=== PATIENT | female | born 2000 | race Caucasian/White ===

== ENCOUNTER 2021-07-05 10:13 | Emergency (ER) | payer OTHER ==
[2021-07-05] MEDS ORDERED: Sulfameth/Trimethoprim DS 800-160mg TAB ONE (11:15)
[2021-07-05] MEDS ORDERED: Boostrix 0.5 ML (Tdap) VIAL ONE (11:15)
== END 2021-07-05 11:38 | disposition home or self-care (01) ==
LOC: MADERS 10:13
DX: S50.811A Abrasion of right forearm, initial encounter (principal); S40.211A Abrasion of right shoulder, initial encounter; S60.416A Abrasion of right little finger, initial encounter; L03.113 Cellulitis of right upper limb; W19.XXXA Unspecified fall, initial encounter
CPT/HCPCS: 90471; 90715

== ENCOUNTER 2021-12-08 14:54 | Emergency (ER) | payer OTHER ==
[~2021-12-08 14:54] MED LIST: Iopamidol 370 76% 100 ML VIAL ONE
[2021-12-08 16:12] LABS: #Basophils 0.1 thou/uL (0.0-0.2); #Eosinphils 0.1 thou/uL (0.0-0.7); #Lymphocytes 2.6 thou/uL (1.20-3.40); #Monocytes 0.4 thou/uL (0.11-0.59); #Neutrophils 3.9 thou/uL (1.40-6.50); %Basophils 0.8 % (0.0-1.0); %Eosinophils 0.8 % (0.0-10.0); %Lymphocytes 37.2 % (21.0-51.0); %Monocytes 5.6 % (0.0-10.0); %Neutrophils 55.6 % (42.0-75.0); Bilirubin Negative (Negative); Blood, Urine Negative (Negative); Clarity Clear (Clear); Glucose, Urine (Dipstick) Negative (Negative); Hemoglobin 13.7 g/dL (12.0-16.0); Ketone, Urine Negative (Negative); Leukocyte Negative (Negative); Mean Corpuscular HGB CONC 31.4 g/dL (32.0-36.0); Mean Corpuscular Hemoglobin 27.6 pg (27.0-31.0); Mean Corpuscular Volume 87.8 fL (78.0-98.0); Mean Platelet Volume 8.8 fL (7.4-10.4); Nitrite Negative (Negative); Platelet Count 213 thou/uL (130-400); Protein, Urine (Dipstick) Negative (Neg-Trace); RBC Distribution Width 11.6 % (11.5-14.5); Red Blood Cell (RBC) Count 4.98 mill/uL (4.20-5.40); Urobilinogen 0.2 mg/dL (Less than 2); White Blood Cell (WBC) Count 6.9 thou/uL (4.8-10.8)
[2021-12-08 16:30] LABS: ALT (SGPT) 17 U/L (8-55); AST (SGOT) 16 U/L (5-34); Albumin 4.5 g/dL (3.5-5.0); Alkaline Phosphatase 61 U/L (40-110); Anion Gap 13 mmol/L (10-20); BUN (Urea Nitrogen) 7 mg/dL (7.0-18.7); Bilirubin, Total 0.4 mg/dL (0.2-1.2); CK (CPK) 49 U/L (29-168); CRP (Inflammatory) 0.87 mg/dL (= or < 0.5); Calc. Creatinine Clearance 0 mL/min (70-130); Calcium 9.6 mg/dL (7.8-10.44); Carbon Dioxide 25 mmol/L (22-29); Chloride 106 mmol/L (98-107); Estimated GFR 107; Globulin 3.5 g/dL (2.4-3.5); Glucose 103 mg/dL (70-105); Potassium 3.9 mmol/L (3.5-5.1); Sodium 140 mmol/L (136-145)
[2021-12-08 16:31] LABS: BHCG - Serum Negative (NEGATIVE); Pregs Control Background? CLEAR/WHITE (CLR/WHITE); Pregs Control Bar Appear? YES (CONTROL BAR)
== END 2021-12-08 17:44 | disposition home or self-care (01) ==
LOC: MADERS 14:54
DX: K29.70 Gastritis, unspecified, without bleeding (principal)
CPT/HCPCS: 74177; 80053; 81003; 82550; 84703; 85025; 86140; Q9967